=== PATIENT | female | born 1940 | race Caucasian/White ===

== ENCOUNTER → 2016-09-24 | Outpatient (CLI) | payer OTHER | LOC: FIMAGING 07:37 | PROVIDERS: ATTEND Nurse Practitioner Family | DX: L81.8 Other specified disorders of pigmentation (principal); R20.8 Other disturbances of skin sensation; R22.1 Localized swelling, mass and lump, neck ==

== ENCOUNTER 2016-12-03 07:32 | Inpatient (IN) | payer OTHER ==
--- NOTE | 2016-11-24 17:25 | GHP ---
[f rep st] PREOP HISTORY AND PHYSICAL DATE OF ADMISSION: 12/03/2016 This patient will be an a.m. admission for surgery at [facility] on December 03, 2016 PROBLEM: Left knee severe degenerative arthritis. HISTORY OF PRESENT ILLNESS: The patient is a 76-year-old woman admitted for a left total knee arthro plasty. I have followed her for a number of years with progressive degenerative arthritis in both kn ees. The left knee is much more painful than the right. She has had Supartz injections on 3 or 4 oc casions. They are losing their effectiveness. She is having daily pain. Most of her pain is on the medial side of the knee. Her activities are significantly limited. She has failed nonsurgical josselin tment. She is admitted for a left total knee arthroplasty. PAST MEDICAL HISTORY: She is treated for hypothyroidism and hypertension. No history of heart disea se, stents, DVT, or bleeding problems. She has slight sleep apnea but does not use a CPAP machine. CURRENT MEDICATIONS: [place] Thyroid daily, atenolol 25 mg per day, valsartan 325/hydrochlorothiazide 25 1 tablet per day. She also takes a baby aspirin per day. DRUG ALLERGY: None. LATEX ALLERGY: None. METAL ALLERGY: None. SOCIAL HISTORY: The patient is . She does not smoke cigarettes and rarely drinks alcohol. FAMILY HISTORY: Positive for cancer and hypertension. PHYSICAL EXAMINATION: GENERAL: An alert, healthy-appearing woman. Height 5 feet 5 inches. Weight 175 pounds. BMI 21.1. EYES: Conjunctivae and sclerae are clear. Pupils are round and reactive. M OUTH: Good oral hygiene. No loose teeth. CHEST: Clear. HEART: Regular rhythm; no murmurs. EXTR EMITIES: Pertinent findings are limited to her left knee. She lacks 5 degrees of full extension and flexes to 120 degrees. She has a small effusion. She is tender along the medial joint line. Mild varus alignment is present. Moderate patellofemoral crepitation with active knee extension. IMPRESSION ON ADMISSION: 1. Left knee advanced medial compartment degenerative arthritis with varus deformity. 2. Treatment for hypertension. 3. Treatment for hypothyroidism. IMAGING: Her films show very severe medial compartment degenerative arthritis. She is [id number], and she is starting to erode some of her medial tibial plateau. She is in about 10 degrees of varus . PLAN: She will undergo a left total knee arthroplasty. The surgery has been described to her, cristopher potter the risks, complications, expectations, and recovery time. I have stressed the importance of po stoperative physical therapy. I have advised her there that a small percentage of people with total knee replacements do not get a satisfactory result. All her questions have been answered, and she co nsents to surgery. /[id number]/MODL
[~2016-12-03 07:32] MED LIST: POVIDONE-IODINE 20 ML in SODIUM CL IRRIG SOLUTION 500 ML IRR ONE; ROPIVACAINE 0.2% 80 MG, EPINEPHrine 0.2 MG, KETOROLAC TROMETHAMINE 30 MG in BAG 0 ML IU ONE; TRANEXAMIC ACID 800 MG in NS 100 ML IV ONE; ceFAZolin 2 GM/DEXTROSE 100 ML IV ONE
[2016-12-03] MEDS ORDERED: VANCOMYCIN 1 GM VIAL ONE (07:40)
[2016-12-03] MEDS ORDERED: ceFAZolin 1 GM/5 ML SYR ONE (07:41)
[2016-12-03] MEDS ORDERED: DEXAMETHASONE 4 MG/ML VIAL IVP ONE (08:21)
[2016-12-03] MEDS ORDERED: ACETAMINOPHEN 325 MG TAB PO ONE (08:21)
[2016-12-03] MEDS ORDERED: FAMOTIDINE 20 MG TAB PO ONE (08:21)
--- NOTE | 2016-12-03 08:52 | PDHPUP ---
History & Physical Update H&P update statement: This history and physical update is based on an assessment of the patient which was completed after admission or registration (within 24 hours), but prior to the surgery/procedure. H&P update: H&P reviewed & patient examined, no change in patient's condition since H&P completed
[2016-12-03] MEDS ORDERED: ceFAZolin 2 GM/SWFI 20 ML SYR IVP ONE (08:55)
[2016-12-03] MEDS ORDERED: LR 1,000 ML IV ONE (09:05)
[2016-12-03] MEDS ORDERED: MIDAZOLAM 2 MG/2 ML VIAL IVP ONE (09:23)
--- NOTE | 2016-12-03 09:23 | PDANEPAE ---
ANE History of Present Illness 76 yo for r tka ANE Past Medical History - Cardiovascular History Hx Hypertension: Yes Hx Arrhythmias: No Hx Chest Pain: No Hx Coronary Artery / Peripheral Vascular Disease: No Hx CHF / Valvular Disease: No Hx Palpitations: No - Pulmonary History Hx COPD: No Hx Asthma/Reactive Airway Disease: No Hx Recent Upper Respiratory Infection: No Hx Oxygen in Use at Home: No Hx Sleep Apnea: Yes Sleep Apnea Screening Result - Last Documented: Positive - Neurologic History Hx Cerebrovascular Accident: No Hx Seizures: No Hx Dementia: No - Endocrine History Hx Diabetes: No - Renal History Hx Renal Disorders: No - Liver History Hx Hepatic Disorders: No - Neurological & Psychiatric Hx Hx Neurological and Psychiatric Disorders: No - Cancer History Hx Cancer: No - Congenital Disorder History Hx Congenital Disorders: No - GI History Hx Gastrointestinal Disorders: No - Chronic Pain History Chronic Pain: No - Surgical History Prior Surgeries: tubal ligation ANE Review of Systems Review of Systems: - Exercise capacity METS (RN): 4 METS ANE Patient History - Allergies Allergies/Adverse Reactions: No Known Allergies Allergy (Unverified 10/27/16 09:59) - Home Medications Home medications: home medication list seen and reviewed Home Medications: [place] Thyroid 75mg 75 mg PO DAILY AT 6AM 10/27/16 [Last Taken Unknown] Aspirin [Aspirin 81mg (*)] 81 mg PO DAILY 10/27/16 [Last Taken 11/26/16] Atenolol [Tenormin 25 mg (*)] 25 mg PO DAILY AT 6AM 10/27/16 [Last Taken 0630] Herbals/Supplements -Info Only 1 ea PO DAILY 10/27/16 [Last Taken 12/02/16 1 EA] Multivitamins [Multivitamin (*)] 1 each PO DAILY 10/27/16 [Last Taken 12/02/16 1 EACH] Valsartan/Hydrochlorothiazide [Diovan Hct 320-25 mg Tablet] 1 each PO DAILY [Last Taken 12/03/16 0630] - NPO status NPO Since - Liquids (Date): 12/02/16 NPO Since - Liquids (Time): 20:30 NPO Since - Solids (Date): 12/02/16 NPO Since - Solids (Time): 19:30 - Smoking Hx Smoking Status: Never smoked - Family Anes Hx Family Hx Anesthesia Complications: none ANE Labs/Vital Signs - Vital Signs Blood Pressure: 123/75 Heart Rate: 65 Respiratory Rate: 16 O2 Sat (%): 92 Height: 5 ft 4 in Weight: 79.379 kg ANE Physical Exam - Airway Neck exam: FROM Mallampati Score: Class 3 Mouth exam: normal dental/mouth exam - Pulmonary Pulmonary: no respiratory distress - Cardiovascular Cardiovascular: regular rate and rhythym - ASA Status ASA Status: III ANE Anesthesia Plan Anesthesia Plan: spinal Regional Anesthesia: adductor canal FNB
[2016-12-03] MEDS ORDERED: MIDAZOLAM 2 MG/2 ML VIAL ONE (09:26)
[2016-12-03] MEDS ORDERED: PROPOFOL/EMULSION 500 MG/50 ML BOTTLE IV ONE (09:30)
[2016-12-03] MEDS ORDERED: fentaNYL 100 MCG/2 ML INJ ONE (09:30)
[2016-12-03] MEDS ORDERED: NALOXONE HCL 0.4 MG/ML INJ IVP PRN (11:00)
[2016-12-03] MEDS ORDERED: fentaNYL 100 MCG/2 ML INJ IVP PRN (11:00)
[2016-12-03] MEDS ORDERED: HYDROmorphONE/DILAUDID 1 MG/ML INJ IVP PRN (11:00)
[2016-12-03] MEDS ORDERED: ONDANSETRON 4 MG/2 ML VIAL IVP PRN ×2 (11:00→11:23)
--- NOTE | 2016-12-03 11:11 | POSTOPPROG ---
Post Op Note Date of Operation: 12/03/16 Surgeon: Vinicius Rod Email Marketing Processor: Macho Torre/José Manuel Spann Anesthesiologist: Theresa Anesthesia: IV Sedation, Spinal Post-op Diagnosis: Left knee degenerative arthritis. Procedure: Left total knee arthroplasty Inf/Abcess present in the surg proc area at time of surgery?: No EBL: 50-100 (Adductor canal block in PACU)
[2016-12-03] MEDS ORDERED: TEMAZEPAM 15 MG CAP PO PRN (11:23)
[2016-12-03] MEDS ORDERED: PROMETHAZINE HCL 25 MG/ML INJ IVP PRN (11:23)
[2016-12-03] MEDS ORDERED: CYCLOBENZAPRINE 10 MG TAB PO PRN (11:23)
[2016-12-03] MEDS ORDERED: KETOROLAC 30 MG/1 ML SDV IVP PRN (11:23)
[2016-12-03] MEDS ORDERED: LACTULOSE 20 GM/30 ML UDCUP PO PRN (11:23)
[2016-12-03] MEDS ORDERED: diphenhydrAMINE 25 MG CAP PO PRN (11:23)
[2016-12-03] MEDS ORDERED: traMADol 50 MG TAB PO PRN (11:23)
[2016-12-03] MEDS ORDERED: BISACODYL 10 MG SUPP PR PRN (11:23)
[2016-12-03] MEDS ORDERED: DIPHENOXYLATE/ATROPINE LOMOTIL 1 TAB PO PRN (11:23)
[2016-12-03] MEDS ORDERED: PROMETHAZINE HCL 25 MG SUPPR PR PRN (11:23)
[2016-12-03] MEDS ORDERED: MAGNESIUM HYDROXIDE 30 ML UDCUP PO PRN (11:23)
[2016-12-03] MEDS ORDERED: POLYETHYLENE GLYCOL 3350 17 GM PKT PO PRN (11:23)
[2016-12-03] MEDS ORDERED: METOCLOPRAMIDE 10 MG/2 ML VIAL IVP PRN (11:23)
[2016-12-03] MEDS ORDERED: LR 1,000 ML IV SCH (11:30)
--- NOTE | 2016-12-03 11:42 | POSTANESTH ---
Post Anesthetic Evaluation Cardiovascular Status: Normal, Stable Respiratory Status: Normal, Stable Level of Consciousness/Mental Status: Can Participate in Eval Pain Control: Adequate, Prn Tx Ordered Nausea/Vomiting Control: Adequate, Prn Tx Ordered Complications Possibly Related to Anesthesia: None Noted
--- NOTE | 2016-12-03 12:21 | GOP ---
[f rep st] OPERATIVE REPORT DATE OF OPERATION: 12/03/2016 SURGEON: Vinicius Rod MD CORPORATE SAFETY COORDINATOR: Macho Torre and José Manuel Spann. ANESTHESIA: A combination of Marcaine, spinal, IV sedation, and adductor canal block by Dr. Cardenas . PREOPERATIVE DIAGNOSIS: Left knee severe degenerative arthritis with varus deformity. POSTOPERATIVE DIAGNOSIS: Left knee severe degenerative arthritis with varus deformity. PROCEDURE PERFORMED: 12/03/2016: A left total knee arthroplasty, cemented, posterior stabilized, [facility] and Nephherminia Kendrick 2. FINDINGS: DESCRIPTION OF PROCEDURE: The patient was given 2 g of preoperative IV Ancef within 60 minutes of handy rgery. She also received IV tranexamic acid at a dose of 10 mg/kg. She was placed on the operating room table and given spinal anesthesia with Marcaine by Dr. Cardenas. She was then placed supine and given IV sedation. A Mares catheter was not used. A CHIQUIS stocking and SCD were applied to the nonop erative leg. A bolster was placed under her left hip to prevent excessive external rotation of the l eg. Her left lower extremity was prepped with ChloraPrep from the upper thigh tourniquet to the tips of the toes. It was draped free using sterile sheets, stockinette, and Ioban plastic adhesive drape . The lower leg was wrapped with compressive Coban. The leg was exsanguinated with elevation and a 6-inch compressive wrap, and the pneumatic tourniquet was inflated to 275 mmHg. A [employer] time-out was performed to verify the correct patient identity and the cor rect surgical side. The [place] time-out was also performed. The [facility] leg holding device was kina alineely attached to the operating room table and used throughout the procedure to help position the kn ee. A straight midline incision made centered on the patella. Subcutaneous tissues were sharply div ided, and hemostasis was obtained using electrocautery. A medial subcutaneous flap was developed, an d the capsule and synovium were opened in a medial parapatellar fashion. Extensive degenerative dyson ges were present. She had deep erosion of the medial femoral sulcus from the patella and she also dinero d a deep erosion into the medial tibial plateau. The medial capsule and periosteum were elevated off the rim of the medial tibial plateau all around to the posteromedial corner. Because of her signifi cant preoperative varus deformity, I had performed an aggressive release of her medial collateral lig ament. In order to improve exposure, her patella was prepared first. The original thickness of the patella was measured. Peripheral osteophytes were removed. I cut a flat surface on the back of the patella. It was sized for a 38 mm resurfacing component. I removed enough bone from the patella such that t he remaining bone plus the thickness of the patellar component recreated the original thickness of th e patella. Her composite thickness was 22 mm. The intramedullary alignment guide system was used to set up the distal femoral cut. The distal femu r was cut in 5 degrees of valgus. Because of a slight preoperative flexion contracture, I made a +2 mm cut on the distal femur. The sizing jig was used to determine proper femoral sizing. She was a t rue size 5 without a shift. The 5 in 1 cutting block was applied, and the anterior and posterior con dylar cuts and chamfer cuts were made. The final jig was used to remove the central portion of the d istal femur to accommodate the posterior stabilized femoral component. I was careful to determine pr oper rotation by referencing off Whitesides line. Each cut was checked for accuracy before and after it was made. Her femur was sized for a size 5 posterior stabilized component. The trial component was tapped securely into place and was an excellent fit. Next, the tibia was prepared. The proximal tibial cut was made using the extramedullary alignment gu kati system. The cut was made in a few degrees of posterior slope. I was careful to achieve proper v arus valgus alignment and proper rotation. The posterior compartment was cleared of meniscal remnant s. Osteophytes were removed from the back of her femoral condyles. I checked the flexion extension gaps, and they were equal, balanced and rectangular. Her tibia was sized for a size 4 component. With the trial components in place, I selected a 10 mm p olyethylene posterior stabilized tibial insert. The knee came to full extension and flexed to 125 de grees. There was no overstuffing in flexion. Her collateral ligaments were stable and balanced in 9 0 degrees of flexion and full extension. The trial patellar button was applied, and tracking was william cked. She had excellent tracking without any digital pressure. 40 mL of the joint anesthetic cocktail were injected into the posterior capsule, the periarticular st ructures, the quadriceps muscle and tendon areas, and the subcutaneous tissues along the skin edges. A second dose of IV tranexamic acid was given at a dose of 10 mg/kg. The surfaces were prepared for cementing. They were carefully cleaned with the pulsating lavage irri gation and thoroughly dried. A CarboJet device was used to blow dry the cancellous surfaces. A doub le batch of methylmethacrylate cement with 2 g of powdered vancomycin added was mixed. While it was still in a semi liquid state, all 3 components were cemented in place. Excess cement was removed bef ore it hardened. The 10 mm trial tibial insert was re-tried and was the proper thickness. The actual component was in serted and locked into place. The knee was thoroughly irrigated 1 final time with a dilute Betadine solution. The tourniquet was deflated. Total tourniquet time was 49 minutes. The vastus medialis portion of the extensor mechanism was repaired with several interrupted figure-of -eight #2 FiberWire sutures. The capsule and synovium were closed first with multiple interrupted fi [id number] 0 PDS sutures, followed by a running #2 barbed Ethicon STRATAFIX PDO suture. Subcutane ous tissues were closed with a running 0 barbed Ethicon STRATAFIX Monoderm suture. The skin was clos ed with a running 3-0 barbed Ethicon STRATAFIX Monoderm subcuticular suture. The skin was sealed wit h half-inch Steri-Strips. The wound was covered with Xeroform gauze and flat 4 x 4's and the knee wa s wrapped with a Kerlix and 6-inch compressive wrap. A long-leg CHIQUIS stocking and SCD were applied fo llowed by the cooling device. The patient wore a stocking and SCD on the opposite leg during the pro cedure. I used a size 5 cemented Self and Nephew Oxinium posterior stabilized femoral component, a size 4 ce mented tibial base plate, a 10 mm posterior stabilized tibial insert and a 38 mm cemented round all-p olyethylene resurfacing patellar component. The estimated blood loss following placement of the tourniquet was about 100 mL. The sponge and need le counts were correct on 2 occasions. She was awakened from anesthesia, transferred to her [facility] and taken to PACU in satisfactor y condition. There were no recognized intraoperative complications. In the PACU, for additional postoperative pain control, Dr. Cardenas performed an adductor canal bloc kPurnima Torre and José Manuel Spann acted as surgical assistants. Their assistance was a medical necess ity. /[id number]/MODL
[2016-12-03] MEDS: ACETAMINOPHEN 325 MG TAB PO SCH ×2 (13:15→17:25)
[2016-12-03] MEDS: oxyCODONE IR 5 MG TAB PO PRN ×3 (14:45→20:54)
--- NOTE | 2016-12-03 16:33 | ASMTCMCOM ---
CM Note CM Note Notes: Pt is s/p L TKA. PT/OT pending. Anticipate d/c with no CM needs but will continue to follow for any unanticipated needs. Date Signed: 12/03/2016 04:32 PM Electronically Signed By:OMER Agarwal
[2016-12-03] MEDS: VALSARTAN 160 MG TAB PO SCH (17:11)
[2016-12-03] MEDS: TRANEXAMIC ACID 650 MG TAB PO SCH (17:26)
[2016-12-03] MEDS: ceFAZolin 2 GM/DEXTROSE 100 ML IV SCH (17:29)
[2016-12-03] MEDS: FAMOTIDINE 20 MG TAB PO SCH (20:54)
[2016-12-03] MEDS: SENNOSIDES/DOCUSATE SODIUM TAB PO SCH (20:54)
[2016-12-03] MEDS: ASPIRIN 325 MG TAB PO SCH (20:54)
[2016-12-03] MEDS: ONDANSETRON DISINTEGRATING 4 MG TAB PO PRN (23:46)
[2016-12-04] MEDS: ACETAMINOPHEN 325 MG TAB PO SCH ×3 (01:13→12:21)
[2016-12-04] MEDS: ceFAZolin 2 GM/DEXTROSE 100 ML IV SCH (01:14)
[2016-12-04] MEDS: TRANEXAMIC ACID 650 MG TAB PO SCH ×2 (01:22→09:25)
[2016-12-04] MEDS ORDERED: ATENOLOL 25 MG TAB PO SCH (06:00)
[2016-12-04] MEDS ORDERED: THYROID 60 MG TAB PO SCH (06:00)
[2016-12-04 06:01] LABS: HEMATOCRIT 34.2 % (38.0-47.0)
--- NOTE | 2016-12-04 07:35 | SOAPPROG ---
SOAP Progress Note Assessment/Plan: Assessment: Afebrile. Awake and alert. She has been up and walking in the [place]. Moderate pain. Her dressing is dry. Hemoglobin and hematocrit are good. Postop x-rays look excellent. Plan: Continue physical therapy today. Dressing change today. Leg length film today. Discharged later today. 12/04/16 07:34 Objective: Vital Signs Temp Pulse Resp BP Pulse Ox 36.9 C 80 16 113/55 L 98 12/04/16 04:00 12/04/16 05:52 12/04/16 04:00 12/04/16 05:52 12/04/16 04:00 Laboratory Results 12/04/16 04:59 12/03/16 12/04/16 12/05/16 05:59 05:59 05:59 Intake Total 2275 Output Total 400 Balance 1875 ICD10 Worksheet Patient Problems: Problems Problem Status Onset Osteoarthritis of left knee Acute
--- NOTE | 2016-12-04 07:37 | PDIAF ---
- Diagnosis Diagnosis: left knee OA Code Status: Full Code - Medication Management Discharge Medications: Medications to Continue on Transfer [place] Thyroid 75mg 75 mg PO DAILY AT 6AM 10/27/16 [Last Taken Unknown] Atenolol [Tenormin 25 mg (*)] 25 mg PO DAILY AT 6AM 10/27/16 [Last Taken 0630] Herbals/Supplements -Info Only 1 ea PO DAILY 10/27/16 [Last Taken 12/02/16 1 EA] Multivitamins [Multivitamin (*)] 1 each PO DAILY 10/27/16 [Last Taken 12/02/16 1 EACH] Valsartan/Hydrochlorothiazide [Diovan Hct 320-25 mg Tablet] 1 each PO DAILY [Last Taken 12/03/16 0630] Acetaminophen [Tylenol 325mg (*)] 650 mg PO Q6HRS tab 12/04/16 [Last Taken Unknown] Aspirin [Aspirin 325 mg (*)] 325 mg PO DAILY tab 12/04/16 [Last Taken Unknown] Ferrous Sulfate [Slow Fe 140 MG (*)] 140 mg PO DAILY tab.er 12/04/16 [Last Taken Unknown] Ondansetron Odt [Zofran Odt 4 mg (*)] 4 mg PO Q4HRS PRN tab 12/04/16 [Last Taken Unknown] Sennosides/Docusate Sodium [Senokot-S] 1 - 2 tab PO BID tab 12/04/16 [Last Taken Unknown] oxyCODONE IR [Oxycodone Ir (*)] 5 - 10 mg PO Q3HRS PRN tab 12/04/16 [Last Taken Unknown] traMADol [Ultram 50 mg (*)] 50 mg PO Q6HRS PRN tab 12/04/16 [Last Taken Unknown ] Discharge Medications: Refer to the Discharge Home Medication list for PRN reason. PICC Care - Routine: N/A - Orders Services needed: Home Care, Physical Therapy Home Care Face to Face: I certify that this patient was under my care and that I had the required [id number] encounter meeting the encounter requirements on the discharge day. My findings support the fact that the patient is homebound as defined in Home Care Face to Face Continued: CMS Chapter 7 Medicare Benefits Manual 30.1.1 , The condition of the patient is such that there exists a normal inability to leave home and consequently, leaving home would require a considerable and taxing effort. Diet Recommendation: no restrictions on diet Diet Texture: Regular Texture Diet Mares: Not applicable Juan Ramon Stockings Discontinue Date: 1 week Wound Care Instructions: Keep clean and dry. You may shower. Activity/Weight Bearing Restrictions: as tolerated. Equipment: Zero Knee while in bed as tolerated. - Follow Up Care Current Providers and Referrals: MIKE REYNOSO NP [Primary Care Provider] - Vinicius Rod MD [Medical Doctor] - 12/15/16 11:15 am
[2016-12-04 07:50] VITALS: BP 106/53
--- NOTE | 2016-12-04 08:11 | GDS ---
[f rep st] DISCHARGE SUMMARY ADMISSION DIAGNOSIS: Left knee arthritis. DISCHARGE DIAGNOSIS: Left knee arthritis. OPERATION PERFORMED: Left total knee arthroplasty. POSTOPERATIVE COMPLICATIONS: None. CONDITION ON DISCHARGE: Improved. DESCRIPTION OF HOSPITAL COURSE: The patient was admitted to the hospital on the morning of surgery. The same day under a combination of Marcaine, spinal, IV sedation, and adductor canal block she unde rwent a left total knee arthroplasty. Postoperatively, she was treated with multimodal DVT prophylax is, including aspirin and early mobilization. On the first postoperative day, her hemoglobin and hem atocrit were 12.0 and 34.2. She was seen by Physical Therapy and made good progress with ambulation, knee range of motion and stairs. By the time of discharge, she was afebrile and was independent wal wilberto with a walker. DISPOSITION: Patient is discharged to her home. She will have home physical therapy for 7-10 days. Use CHIQUIS stockings for 1 week. She may progress to full weightbearing on the left as tolerated. I w ill see her back in the office on December 15, 2016. If there any problems, she is to call me at the office. /[id number]/MODL
[2016-12-04] MEDS ORDERED: FERROUS SULFATE 140 MG TAB.ER PO SCH (09:00)
[2016-12-04] MEDS ORDERED: NON-FORMULARY NEW DRUG (Valsartan/Hydrochlorothiazide [Diovan Hct 320-25 Mg Tablet] 1 EACH PO SCH (09:00)
[2016-12-04] MEDS: FAMOTIDINE 20 MG TAB PO SCH (09:24)
[2016-12-04] MEDS: VALSARTAN 160 MG TAB PO SCH (09:24)
[2016-12-04] MEDS: SENNOSIDES/DOCUSATE SODIUM TAB PO SCH (09:25)
[2016-12-04] MEDS: ASPIRIN 325 MG TAB PO SCH (09:25)
[2016-12-04] MEDS: oxyCODONE IR 5 MG TAB PO PRN (09:26)
[2016-12-04] MEDS: ONDANSETRON DISINTEGRATING 4 MG TAB PO PRN (09:26)
--- NOTE | 2016-12-04 09:30 | ASMTCMCOM ---
CM Note CM Note Notes: Pt medically stable for d/c w [facility]. Orders sent in [employer]. Date Signed: 12/04/2016 09:30 AM Electronically Signed By:OMER De Santiago
[2016-12-04 11:37] VITALS: PULSE 67; RESP 16; TEMP 98.3; O2SAT 97
[2016-12-04] MEDS ORDERED: HYDROCHLOROTHIAZIDE 25 MG TAB PO SCH (14:15)
--- NOTE | 2016-12-04 16:21 | ASDISCHSUM ---
Discharge Information Plan Status:Home with Home Health Medically Cleared to Leave: Discharge Date:12/04/2016 01:11 PM CM D/C Disposition:Home Health Service ADT D/C Disposition:[id number] Projected Discharge Date:12/04/2016 11:00 AM Transportation at D/C: Discharge Delay Reason: Follow-Up Date:12/04/2016 11:00 AM Discharge Slot: Final Diagnosis: Placement Information Referral Type:*Home Health Care Services Referral ID:[id number] Provider Name:[facility] [place] Address 1:[address] Address 2:[place] [address] City:[place] Selection Factors: State:[place] Patient Contact Information Contact Name:BLANCHE Relationship: Address:[address] City:[place] Alternate Phone: State/Zip Code:[place] [address] Email: Financial Information Financial Class: Primary Plan Desc:MEDICARE INPATIENT Primary Plan Number:[id number] [facility] Secondary Plan Number:[id number] Assessment Information [facility] CM Progress Note CM Note CM Note Notes: Pt is s/p L TKA. PT/OT pending. Anticipate d/c with no CM needs but will continue to follow for any unanticipated needs. Date Signed: 12/03/2016 04:32 PM Electronically Signed By:OMER Agarwal [facility] CM Progress Note CM Note CM Note Notes: Pt medically stable for d/c w [facility]. Orders sent in [employer]. Date Signed: 12/04/2016 09:30 AM Electronically Signed By:OMER De Santiago Intervention Information
== END 2016-12-04 13:11 | disposition home health service (06) | DRG 470 ==
LOC: F3N 07:32
PROVIDERS: ADMIT Orthopaedic Surgery; ATTEND Orthopaedic Surgery
PROC: 0SRD0J9 Replacement of Left Knee Joint with Synthetic Substitute, Cemented, Open Approach (ICD-10-PCS; principal; 2016-12-03 09:45)
DX: M17.12 Unilateral primary osteoarthritis, left knee (principal); I10 Essential (primary) hypertension; E03.9 Hypothyroidism, unspecified
CPT/HCPCS: 97110-GP; 97116-GP; 97161-GP; 97165-GO; C1713; G8978-GP-CI; G8979-GP-CH; G8979-GP-CI; G8980-GP-CI; G8987-GO-CI; G8988-GO-CI; G8989-GO-CI; J0171; J0690; J1100; J1885; J2250; J2704; J2795; J3010; J3370

== ENCOUNTER → 2017-11-06 | Outpatient (CLI) | payer OTHER | LOC: FIMAGING 08:50 | PROVIDERS: ATTEND Nurse Practitioner Family | DX: Z12.31 Encounter for screening mammogram for malignant neoplasm of breast (principal) ==